=== PATIENT | male | born 2000 | race Caucasian/White ===

== ENCOUNTER 2025-02-26 18:47 | Inpatient (IN) | payer OTHER, SELFPAY ==
[2025-02-26 11:14] VITALS: BP 155/87
[2025-02-26 12:11] LABS: Hematocrit 41.2 % (39.0-52.0); Hemoglobin 14.3 g/dL (13.0-18.0); Mean Corp Hgb Conc. 34.7 g/dL (33.0-37.0); Mean Corpuscular Volume 83.6 fL (80.0-94.0); Nucleated Red Blood Cells % 0 % (-); Platelet Count 223 10^3/uL (130-400); Red Cell Dist. Width 12.4 % (11.5-14.5)
[2025-02-26 12:17] VITALS: BMI 24.9
[2025-02-26 12:18] LABS: ALT (SGPT) 26 U/L (0-50); AST (SGOT) 21 U/L (17-59); Albumin 4.4 g/dl (3.5-5.0); Alkaline Phosphatase 58 U/L (38-126); Blood Urea Nitrogen 13 mg/dl (9-20); Calcium 9.2 mg/dl (8.4-10.2); Carbon Dioxide 25 mmol/L (22-30); Chloride 103 mmol/L (98-107); Estimated Creatinine Clearance > 125 ml/min; Glucose 90 mg/dl (70-99); Lipase 66 U/L (23-300); Potassium 4.0 mmol/L (3.5-5.1); Sodium 138 mmol/L (135-145); Total Protein 7.1 g/dl (6.3-8.2); eGFR > 60.00
[2025-02-26] MEDS: TORADOL 15 MG IV (12:21)
[2025-02-26] MEDS: NSS 1000 IV (12:21)
--- NOTE | 2025-02-26 12:22 | ED.GENMED ---
History of Present Illness
<Gabbi Addison PA-C - Last Filed: 02/26/25 22:03>
General
Chief Complaint: Abdominal Pain
Source: patient
Exam Limitations: none
Time Seen by Provider: 02/26/25 12:02
Nursing documentation reviewed up to this point in time: agreed with
History of Present Illness
History of Present Illness:
Patient is a 24-year-old male who presents to the emergency department with abdominal pain for the past 2 days. He states he woke up with upper abdominal pain on Sunday morning which he initially thought was gas pain or muscular pain. However�he
states that over the past 2 days symptoms have persisted if not worsened in intensity and he now notices pain throughout his lower abdomen as well. He states pain is sometimes sharp and sometimes crampy. Pain is intensified with certain movements
and he found himself walking over in a 'hunched over position' this morning while attempting to work.
He states he does perform a lot of heavy lifting at work, especially this past Sunday prior to onset of symptoms and thought he may have pulled a muscle or developed a hernia.
Patient denies any fever or chills. He denies any dysuria or hematuria. No nausea, vomiting, or anorexia. No significant changes in bowel movements.
Patient did visit an urgent care this morning who was then referred to the emergency department for further and likely abdominal imaging.
Review of Systems
<Gabbi Addison PA-C - Last Filed: 02/26/25 22:03>
Review of Systems
Allergies reviewed?: Yes
All Other Systems: ROS reviewed and negative except as documented in HPI and ROS
Phy Exam
<Gabbi Addison PA-C - Last Filed: 02/26/25 22:03>
Physical Exam
Physical Exam:
Vitals: Hypertensive, otherwise vital signs stable.
General: Patient is well appearing, no acute distress. Nontoxic appearing
Skin: Warm and dry, no rashes or lesions
Head: Normocephalic, atraumatic
Eyes: Sclera nonicteric.
Throat: Protecting airway
Neck: Normal ROM, no cervical spine tenderness, no meningismus
Cardiac: Regular rate and rhythm, no murmurs.
Pulm: Normal respiratory effort. Lungs clear bilaterally
Abdomen: Abdomen soft. Somewhat diffuse tenderness throughout abdomen without rebound tenderness or guarding. No CVA tenderness.
Extremities: No evidence of cyanosis or edema
Neuro: AAOx3. Grossly intact.
Psychiatric: Normal affect.
Course
<Gabbi Addison PA-C - Last Filed: 02/26/25 22:03>
Orders/Labs/Results
Orders:
Orders
02/26/25 11:59
Complete Blood Count/With Diff Urgent
Comprehensive Metabolic Panel Urgent
Lipase Urgent
02/26/25 12:12
0.9% Sodium Chloride 1000 ml [Nss] 1,000 ml IV BOLUS
Ketorolac [Toradol] 15 mg IV NOW STA
02/26/25 12:13
CT Abd/pelvis W Iv Cont Urgent
Comment:
Reason For Exam: Lower abdominal pain
02/26/25 12:25
Urinalysis Reflex To Culture Urgent
Date Specimen was Collected: 02/26/25
Time Specimen was Collected: 12:24
Urine Microscopic Reflex Cult Urgent
Urine Culture Urgent
NEHAL Source: U
Specimen Description:
Date Specimen was Collected: 02/26/25
Time Specimen was Collected: 12:24
02/26/25 Dinner
NPO
Allow oral meds: No
Allow clear liquids: No
NPO with Ice Chips: No
02/26/25 15:43
LevoFLOXacin 750 MG/150 ML [Levaquin] 750 mg in 150 ml IV NOW
MetroNIDAZOLE 500 MG/100 ML [Flagyl 500 mg] 100 ml IV NOW
02/26/25 15:44
Acetaminophen [Tylenol] 650 mg PO NOW STA
02/26/25 17:54
Admit/Transfer Patient As Directed
Co-Sign Provider:
Level of Care: Inpatient admission
Assign to:: Medical/Surgical
Physician / Group: hospitalist
Diagnosis: intraabdominal abcess
Reason for Hospitalization: INTRAABDOMINAL ABSCESS
Expected length of stay greater than two midnights?: Yes
ELOS- Estimated Length of Stay in days: 2
I certify the patient meets the requirements for IP care: Yes
Reason for Overnight Stay: Require IV med- infection
PRN Pain Medication Management As Directed
May give lesser potent ordered pain med per pt: Yes
preference::
Protocol:: Medication orders for pain may be administered in a
manner that supports deferring to patient preference
when the pt is:
- Requesting an ordered lesser potent pain medication.
Least to most potent pain medications are defined
as: acetaminophen < NSAID < tramadol < opioids
(morphine, oxycodone, hydromorphone).
- Requesting a lesser dose of the same medication IF
ORDERED.
- Requesting a less intrusive route of administration
if both routes are prescribed by the provider (PO <
IV).
02/26/25 17:56
Code Status As Directed
Resuscitation Status: Full Code
02/26/25 20:23
Bisacodyl [Dulcolax] 10 mg RECTAL [id number] PRN
Dextrose 5%/Lactringers 1000ML [D5lr] 1,000 ml IV 120 mls/hr
Enoxaparin Sodium [Lovenox] 40 mg SC QPM
Pantoprazole 80 mg/100 ml Nss [Protonix] 80 mg in 100 ml IV Q10H
02/26/25 20:23
GASTROINTESTINAL CONSULT Routine
Consulting Provider: Ivone Britt
Was physician already notified: Yes
Reason for consult: Possible perf DUo ulcer
IRAD CONSULT Routine
Consulting Provider: Gigi Palencia
Was physician already notified: Yes
Procedure being ordered, including laterality if applicable: Abscess drainage -abdomen
Acknowledgement that appropriate orders are entered: Yes
SURGICAL CONSULT Urgent
Consulting Provider: Orlando Harrington
Was physician already notified: Yes
Reason for consult: INTRA ABDOMINAL ABSCESS
Wound/Abscess/Other Culture Routine
NEHAL Source: Abscess
Specimen Description:
Comment: INTRABDOMINAL ABSCESS
Activity As Directed
Activity Level: Ambulate
Vital Signs As Directed
Frequency: Per unit guidelines
DX Deep Vein Thrombosis Video Routine
02/27/25 00:00
MetroNIDAZOLE 500 MG/100 ML [Flagyl 500 mg] 100 ml IV Q8H
02/27/25 06:00
Basic Metabolic Panel IN AM
Complete Blood Count/No Diff IN AM
PTT IN AM
Prothrombin Time IN AM
02/27/25 18:00
LevoFLOXacin 750 MG/150 ML [Levaquin] 750 mg in 150 ml IV Q24H
Abnormal Lab Results
02/26/25 02/26/25
11:59 12:25
Absolute Monos (auto) 0.9 H 10^3/uL
(0.1-0.6)
Lymphocytes % 19.9 L %
(20.5-51.1)
Monocytes % 11.4 H %
(1.7-9.3)
Urine Ketones 3+ A
(Negative)
Urine Bacteria (Reflex) Moderate A
(Negative)
Urine Albumin (Reflex) 1+ A
(Neg - Trace)
02/26/25 11:59
02/26/25 11:59
Vital Signs
Initial and Last Documented VS:
Initial Vital Signs
Temp Pulse Resp BP Pulse Ox
98.8 F 84 16 155/87 100
02/26/25 11:14 02/26/25 11:14 02/26/25 11:14 02/26/25 11:14 02/26/25 11:14
Last Documented Vital Signs
Temp Pulse Resp BP Pulse Ox
98.3 F 85 20 134/85 98
02/26/25 20:28 02/26/25 20:28 02/26/25 20:28 02/26/25 20:28 02/26/25 20:52
<Del Christian MD - Last Filed: 02/26/25 15:46>
Orders/Labs/Results
Orders:
Orders
02/26/25 11:59
Complete Blood Count/With Diff Urgent
Comprehensive Metabolic Panel Urgent
Lipase Urgent
02/26/25 12:12
0.9% Sodium Chloride 1000 ml [Nss] 1,000 ml IV BOLUS
Ketorolac [Toradol] 15 mg IV NOW STA
02/26/25 12:13
CT Abd/pelvis W Iv Cont Urgent
Comment:
Reason For Exam: Lower abdominal pain
02/26/25 12:25
Urinalysis Reflex To Culture Urgent
Date Specimen was Collected: 02/26/25
Time Specimen was Collected: 12:24
Urine Microscopic Reflex Cult Urgent
Urine Culture Urgent
NEHAL Source: U
Specimen Description:
Date Specimen was Collected: 02/26/25
Time Specimen was Collected: 12:24
02/26/25 Dinner
NPO
Allow oral meds: No
Allow clear liquids: No
NPO with Ice Chips: No
02/26/25 15:43
LevoFLOXacin 750 MG/150 ML [Levaquin] 750 mg in 150 ml IV NOW
MetroNIDAZOLE 500 MG/100 ML [Flagyl 500 mg] 100 ml IV NOW
02/26/25 15:44
Acetaminophen [Tylenol] 650 mg PO NOW STA
02/26/25 17:54
Admit/Transfer Patient As Directed
Co-Sign Provider:
Level of Care: Inpatient admission
Assign to:: Medical/Surgical
Physician / Group: hospitalist
Diagnosis: intraabdominal abcess
Reason for Hospitalization: INTRAABDOMINAL ABSCESS
Expected length of stay greater than two midnights?: Yes
ELOS- Estimated Length of Stay in days: 2
I certify the patient meets the requirements for IP care: Yes
Reason for Overnight Stay: Require IV med- infection
PRN Pain Medication Management As Directed
May give lesser potent ordered pain med per pt: Yes
preference::
Protocol:: Medication orders for pain may be administered in a
manner that supports deferring to patient preference
when the pt is:
- Requesting an ordered lesser potent pain medication.
Least to most potent pain medications are defined
as: acetaminophen < NSAID < tramadol < opioids
(morphine, oxycodone, hydromorphone).
- Requesting a lesser dose of the same medication IF
ORDERED.
- Requesting a less intrusive route of administration
if both routes are prescribed by the provider (PO <
IV).
02/26/25 17:56
Code Status As Directed
Resuscitation Status: Full Code
02/26/25 20:23
Bisacodyl [Dulcolax] 10 mg RECTAL [id number] PRN
Dextrose 5%/Lactringers 1000ML [D5lr] 1,000 ml IV 120 mls/hr
Enoxaparin Sodium [Lovenox] 40 mg SC QPM
Pantoprazole 80 mg/100 ml Nss [Protonix] 80 mg in 100 ml IV Q10H
02/26/25 20:23
GASTROINTESTINAL CONSULT Routine
Consulting Provider: Ivone Britt
Was physician already notified: Yes
Reason for consult: Possible perf DUo ulcer
IRAD CONSULT Routine
Consulting Provider: Gigi Palencia
Was physician already notified: Yes
Procedure being ordered, including laterality if applicable: Abscess drainage -abdomen
Acknowledgement that appropriate orders are entered: Yes
SURGICAL CONSULT Urgent
Consulting Provider: Orlando Harrington
Was physician already notified: Yes
Reason for consult: INTRA ABDOMINAL ABSCESS
Wound/Abscess/Other Culture Routine
NEHAL Source: Abscess
Specimen Description:
Comment: INTRABDOMINAL ABSCESS
Activity As Directed
Activity Level: Ambulate
Vital Signs As Directed
Frequency: Per unit guidelines
DX Deep Vein Thrombosis Video Routine
02/27/25 00:00
MetroNIDAZOLE 500 MG/100 ML [Flagyl 500 mg] 100 ml IV Q8H
02/27/25 06:00
Basic Metabolic Panel IN AM
Complete Blood Count/No Diff IN AM
PTT IN AM
Prothrombin Time IN AM
02/27/25 18:00
LevoFLOXacin 750 MG/150 ML [Levaquin] 750 mg in 150 ml IV Q24H
Abnormal Lab Results
02/26/25 02/26/25
11:59 12:25
Absolute Monos (auto) 0.9 H 10^3/uL
(0.1-0.6)
Lymphocytes % 19.9 L %
(20.5-51.1)
Monocytes % 11.4 H %
(1.7-9.3)
Urine Ketones 3+ A
(Negative)
Urine Bacteria (Reflex) Moderate A
(Negative)
Urine Albumin (Reflex) 1+ A
(Neg - Trace)
02/26/25 11:59
02/26/25 11:59
Vital Signs
Initial and Last Documented VS:
Initial Vital Signs
Temp Pulse Resp BP Pulse Ox
98.8 F 84 16 155/87 100
02/26/25 11:14 02/26/25 11:14 02/26/25 11:14 02/26/25 11:14 02/26/25 11:14
Last Documented Vital Signs
Temp Pulse Resp BP Pulse Ox
98.3 F 85 20 134/85 98
02/26/25 20:28 02/26/25 20:28 02/26/25 20:28 02/26/25 20:28 02/26/25 20:52
<Gabbi Addison PA-C - Last Filed: 02/26/25 22:03>
MDM/Problems Addressed
Differential Diagnosis Includes:
Not limited to: GERD, gastritis, constipation, appendicitis, acute cholecystitis, mesenteric adenitis, muscular strain, etc.
MDM/Problems Addressed:
24-year-old female presenting with 2 days of somewhat generalized abdominal pain without associated fever, anorexia, vomiting. No associated urinary symptoms or changes in bowel habits. Mildly hypertensive on arrival with otherwise stable vital
signs. He is afebrile. On exam�patient well and nontoxic appearing. Abdomen is soft with somewhat diffuse tenderness, most notable on right side. No focal tenderness at McBurney's point. Differential as above. Possibilities include GERD,
gastritis, constipation. Possible acute intra-abdominal infection such as appendicitis, acute cholecystitis, less likely diverticulitis. ED plan: Labs, UA, CT scan abdomen/pelvis. Will give IV fluids and treat pain. Will closely monitor and
reassess after above.
Update: Labs reviewed. No clinically significant abnormalities on CBC or chemistry. Urine shows no red blood cells or evidence of suspected infection. CT scan reveals 4.5 X3.8X 8.6 cm multiloculated fluid collection in right mid abdomen
suspicious for abscess. Unclear etiology of abscess however located near duodenum with concern for possible ulcer/perforation
Discussed findings with patient. This will require admission to the hospital for IV antibiotics and possible IR drainage. Levaquin/Flagyl given in ED given PCN allergy. Patient excepted to hospitalist service in stable condition. Patient seen
with attending physician.
Chronic conditions affecting care:
N/A
Acute Exacerbation and/or Progression of Chronic Illness:
N/A
<Gabbi Addison PA-C - Last Filed: 02/26/25 22:03>
*Radiology
Radiology exam reviewed: radiology read reviewed
*Pulse Oximetry
SaO2: 100
Oxygen Mode of Delivery: Room air
Patient hypoxic: no
*EKG
Interpreted by ED Provider?: NA
*Peoplesoft Programmer Interpretation
Rate: Peoplesoft Programmer- N/A
*Critical Care Note
Total Time (30-74mins, 75-104mins- exclusive of procedures): Not Applicable
<Gabbi Addison PA-C - Last Filed: 02/26/25 22:03>
Patient Management
Discussion with other providers: Hospitalist
Escalation/DeEscalation of care consider admission/obs:
Admit for IV antibiotics, further management and possible IR drainage
ED Attending Note
<Gabbi Addison PA-C - Last Filed: 02/26/25 22:03>
-
Portions of this chart may have been created with voice recognition software.� Occasional wrong word or��sound alike� substitutions may have occurred due to the inherent limitations of voice recognition software.
<Del Christian MD - Last Filed: 02/26/25 15:46>
ED Attending Note
Patient seen and examined by attending physician: Yes
I performed the substantive portion of visit, reviewed & personally made and approve the management plan that is documented in note by myself or IMMANUEL.: Yes
ED Attending Note:
Healthy 24-year-old male 2 days of abdominal pain. Mostly mid abdomen. No nausea or vomiting no diarrhea no fever. No trauma. No back pain.
On exam patient is alert oriented no distress. Warm and dry. Perfusing well. Lungs clear and equal. Heart regular rate and rhythm no murmur. Abdomen has bowel sounds. No distention. Soft. Nonlocalizing tenderness diffusely across the lower
abdomen periumbilical and mild epigastric. No rebound or guarding no mass or hernia.
Medical Decision Making vague abdominal discomfort. Large differential including appendicitis enteritis. Doubt diverticulitis. Doubt bowel obstruction.
Labs are stable. CT scan shows a 4 cm multiloculated probable abscess in the mid abdomen. Next to the duodenum. Could be consistent with a ruptured duodenal ulcer. However this does not totally fit his history. Etiology is uncertain but at this
time clearly warrants admission antibiotics and further evaluation and referral
Discharge Plan
Departure
Patient Disposition: Admit
Date of Disposition: 02/26/25
Time of Disposition: 15:40
Presentation/result/management discussed w/ accepting MD/DO: Hospitalist
Discharge Problem:
Intra-abdominal abscess
Interventions
Interventions:
*Risk Screen - Suicide Last Done: 02/26/25 21:41
*General Assessment Last Done: 02/26/25 12:18
*Neglect/Abuse Screening Last Done: 02/26/25 11:16
*ED- Fall Risk Assessment Last Done: 02/26/25 12:18
*ED COVID-19 Vaccine History Last Done: 02/26/25 21:36
*Nursing Disposition Last Done: 02/26/25 20:29
BP-Jicgck-Hjgnpyfidx Assessment Last Done: 02/26/25 12:00
Discharge Date and Time
Discharge Date/Time: 02/26/25 20:29
[2025-02-26 12:48] LABS: Urine Character Clear (Clear)
[2025-02-26 13:22] LABS: Urine Squamous Cell 0-2 /LPF (Few)
[2025-02-26 13:23] LABS: Urine Red Blood Cell 0-2 /HPF (0-2); Urine White Cell 0-2 /HPF (0-5)
[2025-02-26] MEDS: TYLENOL 650 MG PO (16:07)
[2025-02-26] MEDS: FLAGYL 500 MG 100 IV ×2 (16:08→23:05)
--- NOTE | 2025-02-26 16:30 | W.PN.UPDATE ---
Update Note
Progress Note Update
Seen and examined the patient with the resident. Agree with plan.'s please see changes in my documentation
24-year-old man presented to the ER with abdominal pain for the past 2 days. He performs a lot of heavy lifting at work and initially thought on Sunday that this was the reason. No fevers or chills. Denies any melena, hematemesis, diarrhea, NSAID
use, alcohol use. Brother with history of duplication of duodenum as a baby
CT scan of the abdomen pelvis-4.5-3.8 and 8.69 cm with a multiloculated fluid collection within the right mid abdomen suspicious for abscess. Source of abscess is indeterminate however superiorly this is inseparable from the duodenum and could
represent sequelae of duodenal ulcer or perforation. Mildly enlarged spleen. Partially imaged intramedullary norman within the left femur
Patient denies any pain here
Awake alert pleasant nontoxic-appearing
Cardiovascular system S1-S2 appreciated
Chest clear to auscultation S1 abdomen mild diffuse tenderness no guarding or rigidity no peritoneal signs
No pedal edema
Skin normal
# Multiloculated fluid collection of the abdomen
Most likely duodenal ulcer perforation
Lipase normal
No history of alcohol, NSAID use
Keep n.p.o.
Check blood cultures
Start antibiotics-allergy with rash to amoxicillin therefore use Levaquin and Flagyl
Surgery evaluation-discussed recommended upper GI series
Surgery recommended GI consultation for endoscopic closure
IR consultation for drainage-check abscess culture
ID evaluation
PPI drip
Do not use any NSAIDs for pain only use morphine for now
# DVT prophylaxis-Lovenox
# Full code
Discussed with surgeon
Discussed with mother on the phone and father at bedside
[2025-02-26] MEDS: LEVAQUIN 150 IV (17:17)
--- NOTE | 2025-02-26 18:25 | HPS.HSE ---
Family Physician
-
Family Physician: INTERVIEWE UNKNOWN - PT NOT
Chief Complaint
-
upper abdominal pain
History of Present Illness
24-year-old male presented with abdominal pain started on Sunday, which was a sudden in onset with constant, pain was sharp, sometimes crampy, and diffuse around the upper abdomen, aggravated while on walking,sneezing, coughing and relieved by
lying down. On Sunday he had steak and pain started afterwards which was mild at that time. Did not take any medications for the pain. Not associated with fever, chills, dysuria, hematuria, nausea, vomiting. His last bowel movement is today
morning and he passed flatus. He did not travel outside, never drank water from the stream. He had similar episodes on and off with greasy foods and relieved by bowel rest.
Patient got admitted on 2016 at ER for lower abdominal pain at that time there was no imaging studies done.
Medical History
Past Medical History
Past Medical History: Reports None
Past Surgical History: Reports Other
Additional Past Surgical History:
Left knee surgery
Social History
Tobacco: Non-smoker
Alcohol: None
Drug: None
Personal: Single
Employment: Employed
Family History
Family History: Other (His brother had double duodenum when he was born)
Allergies / Home Medications
Allergies
Allergy/AdvReac Type Severity Reaction Status Date / Time
amoxicillin Allergy Rash Verified 01/19/17 12:26
Home Medications
No Meds [No Current Medications] 02/26/25
Allergies reflects when Allergies were last updated in [facility].
Home Medications with original date entered in [facility]
Allergy/Medication List:
Allergic to penicillin when he was kid.
Review of Systems
-
History Source: Patient
A 12 point ROS was completed and negative except as noted: Yes
Constitutional: Reports See HPI
Physical Exam
Vital Signs
Vital Signs
Temp Pulse Resp BP Pulse Ox
98.8 F 84 16 155/87 100
02/26/25 11:14 02/26/25 11:14 02/26/25 11:14 02/26/25 11:14 02/26/25 12:27
Physical Exam
General: Well Developed and Pain
HEENT: Anicteric and Moist mucous membranes
Respiratory: Clear
Cardiac: S1/S2 and Regular Rhythm
GI: Soft, Non Distended, Normal Bowel Sounds (Hyperechoic bowel sounds.) and Tender (diffuse mild tenderness)
Rectal: Other
Genito-urinary: No costovertebral tender
Musculoskeletal: No Clubbing and No Cyanosis
Skin: Warm
Neuro: AO x 3
Hematologic/Lymphatic: No Lymphadenopathy
Psych: Calm
Laboratory Results
-
02/26/25 11:59
02/26/25 11:59
Laboratory Results
Total Bilirubin 1.1 mg/dl (0.2-1.3) 02/26/25 11:59
AST 21 U/L (17-59) 02/26/25 11:59
ALT 26 U/L (0-50) 02/26/25 11:59
Alkaline Phosphatase 58 U/L (38-126) 02/26/25 11:59
Lipase 66 U/L (23-300) 02/26/25 11:59
Impression/Plan
-
IMPRESSION AND PLAN:
24-year-old male presented with with abdominal pain
# Abdominal pain:
-BP= 155/87; Temp= 98.8, O2 100
-WBC= 8 (n), hemoglobin 14.3(n)
Abdomen/pelvic CT on 02/26 with IV contrast:
1 4.5 x 3.8 x 8.6 cm multiloculated fluid collection within the right mid abdomen suspicious for abscess. Source of abscess is indeterminate, however superiorly the collection abuts and is inseparable from the duodenum and could represent sequela
of duodenal ulcer or perforation.
2. Mildly enlarged spleen.
-NPO.
- Continue IV fluids D5 RL
-IV pantoprazole 40 mg started as prophylaxis for ulcer.
-IV metronidazole, IV levofloxacin continued as prophylaxis for the infection.
-Monitor for QT interval as an side effect of levofloxacin.
-Surgery consulted for multiloculated fluid collection on the right mid abdomen. Recommended for upper GI endoscopy.
-Consult GI for midabdomen abscess, suspicious for duodenal ulcer or perforation.
# Urinalysis: Urine bacteria moderate +, urine albumin +
Urine culture results pending.
DVT prophylaxis: Lovenox 40 mg
Code: Full
Disposition: Home
--- NOTE | 2025-02-26 18:55 | CON.GS ---
Consultation
-
Date/Time Consultation Requested: 02/26/2025 5 PM
Date/Time Consultation Performed: 02/26/2025 6 PM
Requesting Provider: Dr. Scruggs
Performing Provider: Dr. Harrington
Reason for Consultation: Retroperitoneal abscess
Medical History
-
Chief Complaint: Abdominal pain
History of Present Illness:
This is a very pleasant 24-year-old man who presents to the ER with abdominal pain that began Sunday in the setting of GI discomfort that began Sunday into Sunday. He thought that this was 'gas pain'
Past Medical History
Past Medical History: None
Past Surgical History: None
Social History
Tobacco: Non-Smoker
Alcohol: None
Drug: None
Personal: Single
Employment: Employed
Family History
Family History: Other (Brother reportedly has a history of a duodenal duplication cyst)
Allergies / Home Medications
Allergy/AdvReac Type Severity Reaction Status Date / Time
amoxicillin Allergy Rash Verified 01/19/17 12:26
�Medication �Instructions �Recorded �Confirmed �Type
No Meds [No Current Medications] 02/26/25 02/26/25 History
Review of Systems
-
All other systems: Negative unless noted
A 10 point review of systems was completed, and was negative except as per HPI.
Physical Exam
Vital Signs
Temp Pulse Resp BP Pulse Ox
98.8 F 84 16 155/87 100
02/26/25 11:14 02/26/25 11:14 02/26/25 11:14 02/26/25 11:14 02/26/25 12:27
02/25/25 02/26/25 02/27/25
06:59 06:59 06:59
Actual Weight 90.2 kg
Body Mass Index (BMI) 24.9
Lab Results
02/26/25 11:59
02/26/25 11:59
WBC 8.0 10^3/uL (4.8-10.8) 02/26/25 11:59
Hgb 14.3 g/dL (13.0-18.0) 02/26/25 11:59
Hct 41.2 % (39.0-52.0) 02/26/25 11:59
Plt Count 223 10^3/uL (130-400) 02/26/25 11:59
Abs Immat Gran (auto) 0.0 10^3/uL (0-0.05) 02/26/25 11:59
Neutrophils % 65.2 % (42.2-75.2) 02/26/25 11:59
Physical Exam
General: Well Developed and Well Nourished
HEENT: Normocephalic
Respiratory: Clear and Non Labored Respirations
GI: Soft, Non Distended and Tender (Mildly)
Neuro: AO x 3
Data Reviewed
-
CT Scan: Image Personally Visualized and interpreted, Report Reviewed by me, Discussed with Patient and Discussed with Family
Labs: Labs Reviewed by me
Total Time Spent with Patient (in minutes): 35
Assessment / Plan
-
This is a 24-year-old male who presents with 2-day history of worsening right sided abdominal pain in the setting of 4 to 5 days of GI discomfort without nausea vomiting or diarrhea found to have a large retroperitoneal collection that appears to be
emanating from the duodenum on CT abdomen pelvis without oral contrast which could represent a duodenal perforation versus an infection of a duplication cyst if he does indeed have 1 like his brother versus other retroperitoneal organ.
Would get an upper GI with small bowel follow-through with Omnipaque to help confirm source.
N.p.o., IV fluids, IV antibiotics. We did briefly discuss placing an NG tube to decrease the acid through the duodenum but we elected to hold off for now.
IR consult for drainage of this retroperitoneal collection, it appears that there were good windows both anteriorly and through the side.
Pending the findings of the upper GI, recommend GI consult for possible endoscopic closure of the leak.
If the patient were to decompensate, I explained to both patient and family that we would likely need to take him to the operating room for definitive management however as the patient is thankfully stable we will proceed with nonoperative
management for now.
I spent 75 minutes in total for the care of this patient today including direct patient care and counseling, reviewing labs, imaging, coordination of care, as well as documentation.
[2025-02-26 19:43] VITALS: BP 132/89
[2025-02-26 20:28] VITALS: BP 134/85; BMI 25.7
[2025-02-26] MEDS: LOVENOX SC (20:51)
[2025-02-26] MEDS: D5LR 1000 IV (21:11)
[2025-02-26] MEDS: PROTONIX 100 IV (21:19)
[2025-02-26 23:11] VITALS: BP 119/79
[2025-02-27] VITALS (11 sets, daily range): BP systolic 65–147; BP diastolic 76–99
--- NOTE | 2025-02-27 01:19 | PTCARENOTE ---
Pt arrived to unit at 2020 from ED by wheelchair. Pt ambulated into bed without assist-gait steady, erect posture. Pt AAOx3, c/o mild abd pain-denied analgesia. NPO tonight, IVF & protonix gtt started. Pt states no further needs at this time. Call
joya within reach, bed in lowest position and locked.
[2025-02-27 07:21] LABS: INR 1.15; PT 15.2 Sec (11.4-14.6)
[2025-02-27 07:22] LABS: APTT 37.6 Sec (23.4-35.0)
[2025-02-27 07:36] LABS: Blood Urea Nitrogen 13 mg/dl (9-20); Calcium 9.3 mg/dl (8.4-10.2); Carbon Dioxide 27 mmol/L (22-30); Chloride 106 mmol/L (98-107); Estimated Creatinine Clearance > 125 ml/min; Glucose 93 mg/dl (70-99); Potassium 4.0 mmol/L (3.5-5.1); Sodium 140 mmol/L (135-145); eGFR > 60.00
[2025-02-27] MEDS: PROTONIX 100 IV (07:37)
[2025-02-27] MEDS: D5LR 1000 IV ×2 (07:37→22:34)
[2025-02-27 07:40] LABS: Hematocrit 39.7 % (39.0-52.0); Hemoglobin 13.4 g/dL (13.0-18.0); Mean Corp Hgb Conc. 33.8 g/dL (33.0-37.0); Mean Corpuscular Volume 86.1 fL (80.0-94.0); Platelet Count 219 10^3/uL (130-400); Red Cell Dist. Width 12.3 % (11.5-14.5)
[2025-02-27 08:26] LABS: C-Reactive Protein 141.80 mg/L (0.0-10.00)
[2025-02-27] MEDS: FLAGYL 500 MG 100 IV ×3 (08:32→23:12)
--- NOTE | 2025-02-27 08:42 | CON.ID ---
Addendum entered and electronically signed by Jeanne Chong MD 02/27/25 11:47:
I personally performed a history and physical exam of the patient and discussed management with the resident. I reviewed the resident's note and agree with the documented findings and plan of care HPI/CC with the following additions/corrections:
HPI:
Mr Esteves is a 24 year old male without past diagnoses who presented here 02/26 for abrupt onset of abdominal pain on ~02/24, constant, sharp, diffuse, aggravated by movement and relieved by rest. No fevers or chills. He reports a history of
crampy abdominal pain with fatty foods, relieved by bowel rest. Denies any melena, hematemesis, diarrhea, NSAID use, alcohol use
Allergies: reports rash with amoxicillin
Since arrival here he has been found to have a multiloculated abscess without clear cause though perforated duodenal ulcer is suspected.
Labs/Imaging: reviewed
CRP 142
CT scan of the abdomen pelvis-4.5-3.8 and 8.69 cm with a multiloculated fluid collection within the right mid abdomen suspicious for abscess. Source of abscess is indeterminate however superiorly this is inseparable from the duodenum and could
represent sequelae of duodenal ulcer or perforation. Mildly enlarged spleen
EKG - QTc 430
A&P:
Retroperitoneal fluid collection
Allergies: reports rash with amoxicillin
- will follow up upper GI and endoscopy if pursued
- agree with drainage for cultures and source control; also for possible scoping to assess for possible closure
- agree with ceftriaxone/metronidazole - likely for eventual deescalation to orals
AW
Original Note:
Consultation
-
Date/Time Consultation Requested: 02/26/25 20:23
Date/Time Consultation Performed: 02/27/25 09:00
Requesting Provider: Dr. Scruggs
Performing Provider: Maximino Rizvi MD; Jeanne Chong MD
Reason for Consultation: intra abdominal abscess
Chief Complaint / Past History
Chief Complaint
Abdominal pain
History of Present Illness
24 with no medical hx, not on any chronic medications presented in the emergency department on 02/26/2025 with complaint of abdominal pain that started 2 days ago. Denies any nausea, vomiting, fevers or chills. Denies any recent use of NSAIDs,
alcohol use. Denies any recent sickness or sick contacts. He performs normal a lot of heavy lifting at work and thought that he had a muscle pain initially however when the pain progressively worsen he decided to come to the emergency department
In the emergency department CT scan of the abdomen/pelvis was performed which showed, 4.5-3.8 and 8.69 cm with a multiloculated fluid collection within the right mid abdomen suspicious for abscess. Source of abscess is indeterminate however
superiorly this is inseparable from the duodenum and could represent sequelae of duodenal ulcer or perforation. Mildly enlarged spleen. Partially imaged intramedullary norman within the left femur
Past History
Past Medical History: None
Past Surgical History: Orthopedic
Allergy History:
amoxicillin Allergy (Verified 01/19/17 12:26)
Rash
Medications Reviewed: Yes
Current Antibiotics:
Levofloxacin and Flagyl
Social History
Tobacco: Non-Smoker
Alcohol: None
Drug: None
Living: With Family
Employment: Employed
Family History
Family History: Other (Brother has duplication of duodenum)
Review of Systems
Review of Systems
General: Negative Fever
Cardiovascular: Negative Chest Pain
Respiratory: Negative Cough
Gasteroenterology: Other (Right sided abd pain); Negative Weight Loss, Nausea, Vomiting or Diarrhea
Genital / Urological: Negative Dysuria
Musculoskeletal: Negative Joint Pain
Skin / Hair / Nails: Negative Rash
Neurological: Negative Headache
Vital Signs
Temp Pulse Resp BP Pulse Ox
98.6 F 62 20 121/76 98
02/27/25 07:00 02/27/25 07:00 02/27/25 07:00 02/27/25 07:00 02/27/25 07:00
Physical Exam
Physical Exam
Constitutional: Well Developed and Comfortable
Cardiovascular: Regular Rate and S1/S2
Pulmonary: Clear, Symmetric and Non Labored
Gastrointestinal: Soft, Tender (R Upper and lower Q,) and Non Distended
Extremities: Negative Edema
Skin: Warm
Neurological: Awake, Alert and Oriented
Psychological: Calm
Lab / Diagnostic Study Results
02/27/25 06:04
02/27/25 06:04
Abs Immat Gran (auto) 0.0 10^3/uL (0-0.05) 02/26/25 11:59
Absolute Neuts (auto) 5.2 10^3/uL (1.4-6.5) 02/26/25 11:59
Absolute Lymphs (auto) 1.6 10^3/uL (1.2-3.4) 02/26/25 11:59
Absolute Monos (auto) 0.9 10^3/uL (0.1-0.6) H 02/26/25 11:59
Absolute Basos (auto) 0.1 10^3/uL (0-0.2) 02/26/25 11:59
Immature Gran % 0.2 % (0-0.5) 02/26/25 11:59
Neutrophils % 65.2 % (42.2-75.2) 02/26/25 11:59
Lymphocytes % 19.9 % (20.5-51.1) L 02/26/25 11:59
Monocytes % 11.4 % (1.7-9.3) H 02/26/25 11:59
Eosinophils % 2.7 % (0-6) 02/26/25 11:59
Basophils % 0.6 % (0-2) 02/26/25 11:59
PT 15.2 Sec (11.4-14.6) H 02/27/25 06:04
INR 1.15 02/27/25 06:04
C-Reactive Protein 141.80 mg/L (0.0-10.00) H 02/27/25 06:04
Ur Squamous Epith Cells 0-2 /LPF (Few) 02/26/25 12:25
Microbiology Results
Micro:
02/26/25 20:03 Blood Culture - Pending
Blood/Venous
02/26/25 20:03 Blood Culture - Pending
Blood/Venous
02/26/25 12:25 Urine Culture - Pending
Urine
CT Abd/pelvis W Iv Cont 02/26/25
1. 4.5 x 3.8 x 8.6 cm multiloculated fluid collection within the right mid abdomen suspicious for abscess. Source of abscess is indeterminate, however superiorly the collection abuts and is inseparable from the duodenum and could represent sequela
of duodenal ulcer or perforation.
2. Mildly enlarged spleen.
Assessment / Plan
# Multiloculated fluid collection of the abdomen
- Pending upper GI with small bowel follow-through with Omnipaque to help confirm source.
- NPO, IRAD was consulted for drainage
- currently on levofloxacin and Flagyl; since he is hemodynamically stable we will switch to ceftriaxone 2g Q24 and maintain Flagyl at q8h for now.
- BCx and UCx pending
- Brother has Duplicate duodenum
- Patient and family understands that if he decompensate he will require urgent OR.
His father, Rob was present during my encounter with the patient.
--- NOTE | 2025-02-27 09:09 | W.PN.UPDATE ---
Update Note
Progress Note Update
I personally performed a history and physical exam of the patient and discussed management with the resident. I reviewed the resident's note and agree with the documented findings and plan of care HPI/CC with the following additions/corrections:
HPI:
Mr Esteves is a 24 year old male without past diagnoses who presented here 02/26 for abrupt onset of abdominal pain on ~02/24, constant, sharp, diffuse, aggravated by movement and relieved by rest. No fevers or chills. He reports a history of
crampy abdominal pain with fatty foods, relieved by bowel rest. Denies any melena, hematemesis, diarrhea, NSAID use, alcohol use
Allergies: reports rash with amoxicillin
Since arrival here he has been found to have a multiloculated abscess without clear cause though perforated duodenal ulcer is suspected.
Labs/Imaging: reviewed
CRP 142
[address] scan of the abdomen pelvis-4.5-3.8 and 8.69 cm with a multiloculated fluid collection within the right mid abdomen suspicious for abscess. Source of abscess is indeterminate however superiorly this is inseparable from the duodenum and could
represent sequelae of duodenal ulcer or perforation. Mildly enlarged spleen
EKG - QTc 430
A&P:
Retroperitoneal fluid collection
Allergies: reports rash with amoxicillin
- will follow up upper GI and endoscopy if pursued
- agree with drainage for cultures and source control; also for possible scoping to assess for possible closure
- agree with ceftriaxone/metronidazole - likely for eventual deescalation to orals
AW
--- NOTE | 2025-02-27 09:55 | CON.GI ---
Addendum entered and electronically signed by Ivone Britt MD 02/27/25 20:08:
I saw and examined the patient.
The Resident's note was reviewed and I agree with the note.
Comment: 24-year-old with no significant past medical history who presented with complaints of right upper quadrant abdominal pain starting Sunday, this was after having Some chicken tenders, even if he coughs, he would feel the pain. No previous
similar episodes. No nausea or vomiting. No heartburn or trouble swallowing. No constipation, diarrhea, blood in the stool or black stool. No fevers or chills. No history of chronic GI issues even when he was younger. No smoking, no alcohol or
NSAID use on a regular basis. On admission, CBC, CMP in normal limits, C-reactive protein was elevated at 141.8, lipase in normal range.No fevers or chills. CT scan of the abdomen and pelvis with IV contrast showed 4.5 x 3.8 x 8.6 cm
multiloculated fluid collection in the right mid abdomen suspicious for abscess of indeterminate source. This was adjacent to the duodenum. Mildly enlarged spleen noted. Given there was a concern of possible duodenal ulcers/perforation, upper GI
study with small bowel follow-through was performed which showed slightly prominent proximal duodenal mucosal folds but no evidence of duodenal extravasation of contrast and rapid small bowel transit noted.
Family history of duplication cyst in brother and he was younger.
He subsequently had IR drainage of the collection in the right upper quadrant, about 40 mL of light bahena-colored nonbilious fluid was removed, possible has versus chylous ascites. Gram stain, cultures are pending, blood culture pending as well.
Triglycerides and amylase levels added as well.
- Await cultures from the 8 cm cyst/collection in the right upper quadrant, unclear source at this time
On clear liquid diet, advance as tolerated
Monitor for any fevers, currently on ceftriaxone and metronidazole.
No plans for upper endoscopy at this time from a GI standpoint
On Protonix 40 mg daily, can discontinue at discharge if no reflux symptoms.
Will follow peripherally
-
Original Note:
Consultation
-
Date/Time Consultation Requested: 02/26/2025 20:00
Date/Time Consultation Performed: 02/27/2025 09:00
Requesting Provider: Martín Scruggs
Performing Provider: Ivone Britt
Reason for Consultation: Possible perforated duodenal Ulcer
Medical History
Chief Complaint / HPI
Chief Complaint: Abdominal pain
History of Present Illness:
Jose De Jesus is a 24-year-old male with no significant past medical history presented to the ED with complaints of abdominal pain.
He reports that on 02/22, while at a volunteer event, he developed sudden RUQ abdominal pain, 6/10 intensity, following ingestion of fatty foods (chicken tenders and bbq). The pain was not associated with any n/v/or bowel changes. The pain raza
about 45 minutes, then went away. He was fine the next day, but then the pain returned on 02/24, was 7/10 in intensity. He felt as if it might have been gas pain because it was associated with some crampy, discomfort radiating to other parts of the
abdomen and was relieved when lying back, and worse when moving. The pain remained until 02/26 when it increased to 8/10 and he became worried so he went to the Urgent Care who recommended going to the hospital. He denies any fevers, chills, nausea,
vomiting, bloody stools during this time. He was eating, drinking and having normal bowel movements during this time. He reports no EtOH use, no NSAIDs, no history of GERD, no abdominal surgeries, and no history of similar symptoms.
Of note, his brother has a history of duodenal cystic duplication, first noticed on pre- US, that then required surgical removal at 2 weeks of age.
On admission his cbc and chemistry were unremarkable. CT Abd and pelvis w/ IV contrast was done which showed 4.5 x 3.8 x 8.6 cm multiloculated fluid collection within the right mid abdomen suspicious for abscess. Source of abscess is indeterminate,
however superiorly the collection abuts and is inseparable from the duodenum and could represent sequela of duodenal ulcer or perforation.
GI was consulted for the above image findings.
Past Medical History
Past Medical History: Other (See HPI)
Past Surgical History: Other
Social History
Tobacco: Non-Smoker
Alcohol: None
Drug: None
Personal: Partner
Living: With Family
Employment: Employed
Family History
Family History: Reviewed & Not Pertinent
Allergies / Home Medications
Allergy/AdvReac Type Severity Reaction Status Date / Time
amoxicillin Allergy Rash Verified 01/19/17 12:26
�Medication �Instructions �Recorded
No Meds [No Current Medications] 02/26/25
Review of Systems
-
History Source: Patient
All other systems: A 12 pt ROS was Negative except as stated above in HPI
Vital Signs
Temp Pulse Resp BP Pulse Ox
98.6 F 62 20 121/76 98
02/27/25 07:00 02/27/25 07:00 02/27/25 07:00 02/27/25 07:00 02/27/25 07:00
Physical Exam
Exam
General: Well Developed, Well Nourished, No Apparent Distress and Comfortable
HEENT: Normocephalic, Anicteric, Moist Mucous Membranes and Atraumatic
Respiratory: Clear and Non Labored Respirations; Negative Wheezes, Rales or Rhonchi
Cardiac: S1/S2 and Regular Rhythm; Negative Murmur or Rub
Breast: Deferred by me
GI: Soft, Non Distended, Normal Bowel Sounds and Tender (mild diffuse tenderness with comparatively more tender region in the RUQ)
Rectal: Deferred by Provider
Genito-urinary: No Costovertebral Tender
Musculoskeletal: No Clubbing, No Cyanosis and No Edema
Skin: Warm and Dry
Neuro: AO x 3
Psych: Calm
Results
WBC 6.2 10^3/uL (4.8-10.8) 02/27/25 06:04
Hgb 13.4 g/dL (13.0-18.0) 02/27/25 06:04
Hct 39.7 % (39.0-52.0) 02/27/25 06:04
MCV 86.1 fL (80.0-94.0) 02/27/25 06:04
Plt Count 219 10^3/uL (130-400) 02/27/25 06:04
Absolute Neuts (auto) 5.2 10^3/uL (1.4-6.5) 02/26/25 11:59
PT 15.2 Sec (11.4-14.6) H 02/27/25 06:04
INR 1.15 02/27/25 06:04
APTT 37.6 Sec (23.4-35.0) H 02/27/25 06:04
Sodium 140 mmol/L (135-145) 02/27/25 06:04
Potassium 4.0 mmol/L (3.5-5.1) 02/27/25 06:04
Chloride 106 mmol/L (98-107) 02/27/25 06:04
Carbon Dioxide 27 mmol/L (22-30) 02/27/25 06:04
BUN 13 mg/dl (9-20) 02/27/25 06:04
Creatinine 1.0 mg/dL (0.7-1.3) 02/27/25 06:04
Calcium 9.3 mg/dl (8.4-10.2) 02/27/25 06:04
Total Bilirubin 1.1 mg/dl (0.2-1.3) 02/26/25 11:59
AST 21 U/L (17-59) 02/26/25 11:59
ALT 26 U/L (0-50) 02/26/25 11:59
Alkaline Phosphatase 58 U/L (38-126) 02/26/25 11:59
Lipase 66 U/L (23-300) 02/26/25 11:59
Diagnostic Image Results:
see HPI
Prior GI Procedures: None
EGD:
Colonoscopy:
Assessment / Plan
-
Jose De Jesus is a 24-year-old male with no significant past medical history presented to the ED with complaints of abdominal pain over the past [address] Abd/Pelvis:
1. 4.5 x 3.8 x 8.6 cm multiloculated fluid collection within the right mid abdomen suspicious for abscess with moderate adjacent fat stranding and inflammation. Source of abscess is indeterminate, however superiorly the collection abuts and is
inseparable from the duodenum and could represent sequela of duodenal ulcer or perforation. Reactive thickening of the ascending colon.
2. Mildly Enlarged spleen
#Multiloculated Abdominal Fluid Collection suspicious for abscess
#Abdominal Pain
- CT scan above showing large intraabdominal fluid collection suspicious for abscess
- Abutment of the collection to the duodenum and fhx of brother with duodenal duplication suspicious -- f/u small bowel follow through showing no extravasation from the duodenum
- no concern for duodenal ulcer at this time, ok to stop ppi ggt and switch to 40mg PO
- Gen Surg and IRAD already consulted
- given wnl SB follow through, IR to proceed with percutaneous drain placement
- fluid will be sent for culture, gram stain, further analysis
- Abx per ID/Primary team
- c/t monitor CBC, temperature curve
- Bcx drawn, results pending
From our standpoint, we will wait to see what the fluid analysis shows. Given no obvious connection between the duodenum and the fluid collection, there is no clear role at this time for inpatient EUS or EGD.
GI Will continue to follow
-
-
Thank you for consultation and allowing me to participate in the patient's care. Please call the central communications specialist GI physician during the after hours with any questions or concerns.
--- NOTE | 2025-02-27 10:21 | W.PN.GS2 ---
Addendum entered and electronically signed by Josh Wilkinson MD 02/27/25 13:18:
Patient seen and examined.
Pain improved. No nausea or emesis. No fevers. Passing flatus, no BM.
Gen: NAD
Abd: soft, tender RIGHT upper mid abdomen, ND, non-peritoneal
Labs and imaging were reviewed.
Patient is a 24 yo M p/w R upper abdominal pain
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 Less likely perforated ulcer for diverticulum. Recommend and plan for UGI to better assess source and possible connection to bowel. Pending these findings (no connection to bowel), would pursue IR
drainage. Continue with IV abx. Diet NPO for now, could start clears pending/after the above. All questions answered. Family updated.
-- UGI
-- Abx: Zosyn
-- NPO, IVF
-- Pain control: Tylenol and IV Dilaudid PRN
Original Note:
Today's Communication / Plan
-
For Upper GI series to determine next course of action
Assessment / Plan
-
24-year-old male with a past surgical history of left femur ORIF in 2017 and no significant medical history who presented on account of abdominal pain, waxes and wanes worsened with mobility. He denies associated constitutional symptoms, GI
symptoms, genitourinary his urinary symptoms. CT evaluation revealed a multiloculated fluid collection
# Intra-abdominal collection
CT Abd/pelvis W Iv Cont 02/26/2025
1. 4.5 x 3.8 x 8.6 cm multiloculated fluid collection within the right mid abdomen suspicious for abscess.
Source of abscess is indeterminate, however superiorly the collection abuts and is inseparable from the duodenum and could represent sequela of duodenal ulcer or perforation.
2. Mildly enlarged spleen.
- IV fluid, n.p.o.
-ABX
-For small bowel follow-through today
-For IRAD drain/ EGD following study dependent on result of study
-Continue to monitor patient status
DVT PPx Lovenox 40
Subjective Data
-
Date of Service: February 27, 2025
Patient seen
Pain has subsided, now cynthia
Objective Data
-
Intake and Output
02/26/25 02/27/25 02/28/25
06:59 06:59 06:59
Intake Total 792.7 / 792.7
Balance 792.7 / 792.7
Intake:
IV fluids (Total) 616 / 616
IV piggybacks 176.7 / 176.7
Other:
Number of approximated LARGE 1
amounts of urine
Vital Signs
Temp Pulse Resp BP Pulse Ox
98.6 F 62 20 121/76 98
02/27/25 07:00 02/27/25 07:00 02/27/25 07:00 02/27/25 07:00 02/27/25 07:00
Lab Results
02/27/25 06:04
02/27/25 06:04
Calcium 9.3 mg/dl (8.4-10.2) 02/27/25 06:04
Total Bilirubin 1.1 mg/dl (0.2-1.3) 02/26/25 11:59
AST 21 U/L (17-59) 02/26/25 11:59
ALT 26 U/L (0-50) 02/26/25 11:59
Alkaline Phosphatase 58 U/L (38-126) 02/26/25 11:59
Total Protein 7.1 g/dl (6.3-8.2) 02/26/25 11:59
Albumin 4.4 g/dl (3.5-5.0) 02/26/25 11:59
Physical Exam
-
Young man, not in any obvious distress, afebrile
CVS- S1 S2 Only
RS- Non labored breathing, vesicular breath sounds
ABD-full moves with respiration, mild generalized abdominal tenderness more in the right upper quadrant
No guarding
Normal bowel sounds
Patient has a salazar catheter: No
Patient has a central line: No
[2025-02-27] MEDS: STERILE WATER FOR INJECTION 20 ML IV (11:42)
[2025-02-27] MEDS: ROCEPHIN 2000 MG IV (11:42)
--- NOTE | 2025-02-27 13:09 | W.PN.HOSP.TC ---
Addendum entered and electronically signed by Martín Scruggs MD 02/27/25 13:52:
Seen and examined the patient with the resident. Agree with plan.'s please see changes in my documentation
24-year-old man presented to the ER with abdominal pain for the past 2 days. He performs a lot of heavy lifting at work and initially thought on Sunday that this was the reason. No fevers or chills. Denies any melena, hematemesis, diarrhea, NSAID
use, alcohol use. Brother with history of duplication of duodenum as a baby
CT scan of the abdomen pelvis-4.5-3.8 and 8.69 cm with a multiloculated fluid collection within the right mid abdomen suspicious for abscess. Source of abscess is indeterminate however superiorly this is inseparable from the duodenum and could
represent sequelae of duodenal ulcer or perforation. Mildly enlarged spleen. Partially imaged intramedullary norman within the left femur
Upper GI series-slightly prominent proximal duodenal mucosal folds. No findings to suggest duodenal leak or extravasation of contrast. Rapid small bowel transit.
Patient denies any pain
Awake alert pleasant nontoxic-appearing
Cardiovascular system S1-S2 appreciated
Chest clear to auscultation S1 abdomen mild tenderness no guarding or rigidity no peritoneal signs
No pedal edema
Skin normal
# Multiloculated fluid collection of the abdomen
Most likely duodenal ulcer perforation
No evidence of any connection to the duodenum currently up per upper GI series
Lipase normal
No history of alcohol, NSAID use
Keep n.p.o.
Check blood cultures
Start antibiotics-ceftriaxone and Flagyl
IR consultation for drainage-check abscess culture-if okay with GI and surgeon
ID evaluation appreciated
PPI
Do not use any NSAIDs for pain only use morphine for now-patient has not needed any
# DVT prophylaxis-Lovenox
# Full code
Discussed with surgeon
Discussed with mother and father at bedside
Discussed with GI
Discussed with IR
Drainage if OK with Surgeon and GI
Original Note:
Today's Communication/Plan
-
Continue with IV antibiotics
Continue with pain management
Continue to monitor
Assessment / Plan
Assessment / Plan
24-year-old male with past medical history of asthma, and family history of duodenal duplication cyst (brother) presented with abdominal pain described as constant, diffuse, pain scale of 8/10, slightly relieved when lying down. Denies nausea, and
vomiting.
#Abdominal Pain:
Abscess vs. Duodenal perforation vs. duplication cyst
Abdomen/pelvic CT on 02/26 with IV contrast:
1 4.5 x 3.8 x 8.6 cm multiloculated fluid collection within the right mid abdomen suspicious for abscess. Source of abscess is indeterminate, however superiorly the collection abuts and is inseparable from the duodenum and could represent sequela
of duodenal ulcer or perforation.
2. Mildly enlarged spleen.
Upper GI and Small Bowel X-Ray: No findings to suggest duodenal leak or extravasation of contrast
-NPO
-D5LR @120ml/hr
-IV pantoprazole 40 mg
-IV metronidazole 500 IV Day 2
-IV Ceftriaxone Sodium 2000mg IV Day 1
-Pain management: Morphine Sulfate 1mg IV q4PRN
-Drainage vs. conservative management
Surgery, GI, ID, IRAD following
DVT prophylaxis: Lovenox 40 mg
Code: Full
Anticipated Discharge: 24 - 48 hours
Subjective/Interval History
-
Date of Service: February 27, 2025
The patient rates his abdominal pain as 4/10, intermittent, lasting for a few seconds. Improved from yesterday. He is passing flatus, but no bowel movement since yesterday. Denies dysuria, shortness of breath, fever, and weakness.
Objective Data
-
Labs:
Laboratory Results
02/27/25
06:04
WBC 6.2
Hgb 13.4
Hct 39.7
Plt Count 219
PT 15.2 H
INR 1.15
APTT 37.6 H
Sodium 140
Potassium 4.0
Chloride 106
Carbon Dioxide 27
BUN 13
Creatinine 1.0
Glucose 93
Calcium 9.3
Vital Signs:
Vital Signs
Temp Pulse Resp BP Pulse Ox
98.6 F 62 20 121/76 98
02/27/25 07:00 02/27/25 07:00 02/27/25 07:00 02/27/25 07:00 02/27/25 10:31
I&O
02/26/25 02/27/25 02/28/25
06:59 06:59 06:59
Intake Total 792.7 / 792.7
Balance 792.7 / 792.7
Review of Systems
-
History Source: Patient
Constitutional: Denies Fever or Weakness
EENT: Reports No Symptoms Reported
Respiratory: Reports No Symptoms
Cardiac: Reports No Symptoms
Abdomen/GI: Reports Abdominal Pain; Denies Nausea, Vomiting, Diarrhea, Constipated or Bloody Stools
Genitourinary: Reports No Symptoms
Musculoskeletal: Reports No Symptoms
Skin: Reports No Symptoms
Neuro: Reports No Symptoms
Endocrine: Reports No Symptoms
Hematologic / Lymphatic: Reports No Symptoms
Physical Exam
-
General: Well Developed, Well Nourished, Comfortable and Conversant
HEENT: Normocephalic, Atraumatic and Moist Mucous Membranes
Respiratory: Clear to Auscultation
Cardiac: Regular Rhythm and S1/S2
GI: Soft, Nondistended, Normal Bowel Sounds and Tender
Musculoskeletal: No Clubbing, No Cyanosis and No Edema
Skin: Warm and Normal Turgor
Neuro: AO x 3, Nonfocal/Grossly Intact and Central Nerve's Intact
Psych: Calm
--- NOTE | 2025-02-27 13:13 | CM ---
Reviewed the chart notes and spoke with the patient and his parents at the bedside. Patient resides with his parents, brother, and sister in a three story home with no steps to enter. The patient reports no DME/VN/SNF in the past. The patient
confirmed his pharmacy of choice is [facility]. The patient anticipates going to IR for abscess drainage. CM continues to be available to patient/family and is monitoring medical plan for needs at discharge.
Plan: Discharge plans will depend on the patient's progress.
[2025-02-27] MEDS: D5LR IV (13:20)
[2025-02-27] MEDS: DILAUDID 0.5 MG IV (16:16)
[2025-02-27 16:39] LABS: Amylase 49 U/L (30-110)
[2025-02-27] MEDS: LOVENOX 40 MG SC (17:33)
[2025-02-27] MEDS: DILAUDID 0.25 MG IV ×2 (17:34→22:34)
--- NOTE | 2025-02-27 18:27 | W.PN.UPDATE ---
Update Note
Progress Note Update
Drainage from Abdominal fluid collection sent to lab, was cancelled by laboratory with reason 'not a body fluid and cannot be run in house'.
Patient also complained of crampy pain, rated 9/10, according to nurse on duty. Dilaudid 0.25mg IV q4PRN noted to be given 30 mins prior. I went to check on the patient, he was talking with his family, no grimacing noted. He reports that pain was
now a 7/10, but can go up to 8/10 when cramping pain starts, lasting for a few seconds. Upon palpation, abdomen was soft, tender at the right upper abdomen. No guarding or rigidity noted.
Acetaminophen 1000mg PO q8 added for pain relief
If pain continues, recommend consider switching to NPO and increasing Dilaudid dose to 0.5mg [id number].
Please continue to monitor abdominal exams for any changes.
[2025-02-27] MEDS: TYLENOL PO ×3 (19:16→22:35)
[2025-02-27] MEDS: TYLENOL 1000 MG PO (23:12)
[2025-02-28] MEDS: DILAUDID 0.5 MG IV ×2 (00:38→22:55)
[2025-02-28 03:17] VITALS: BP 136/80
[2025-02-28 07:33] VITALS: BP 124/76
[2025-02-28 08:24] LABS: Hematocrit 38.0 % (39.0-52.0); Hemoglobin 12.9 g/dL (13.0-18.0); Mean Corp Hgb Conc. 33.9 g/dL (33.0-37.0); Mean Corpuscular Volume 86.4 fL (80.0-94.0); Nucleated Red Blood Cells % 0 % (-); Platelet Count 220 10^3/uL (130-400); Red Cell Dist. Width 12.2 % (11.5-14.5)
[2025-02-28 08:47] LABS: Blood Urea Nitrogen 11 mg/dl (9-20); Calcium 9.4 mg/dl (8.4-10.2); Carbon Dioxide 29 mmol/L (22-30); Chloride 105 mmol/L (98-107); Estimated Creatinine Clearance > 125 ml/min; Glucose 93 mg/dl (70-99); Potassium 3.9 mmol/L (3.5-5.1); Sodium 139 mmol/L (135-145); eGFR > 60.00
[2025-02-28] MEDS: D5LR 1000 IV (08:57)
[2025-02-28] MEDS: TYLENOL 1000 MG PO ×2 (08:58→21:44)
[2025-02-28] MEDS: FLAGYL 500 MG 100 IV ×3 (08:58→22:59)
[2025-02-28] MEDS: PROTONIX 40 MG PO (08:58)
[2025-02-28 09:03] LABS: C-Reactive Protein 126.50 mg/L (0.0-10.00)
[2025-02-28] MEDS: DILAUDID 0.25 MG IV (09:13)
--- NOTE | 2025-02-28 10:10 | W.PN.HOSP.TC ---
Today's Communication/Plan
-
Pain management
Continue metronidazole and ceftriaxone
Assessment / Plan
Assessment / Plan
Impression:
24-year-old male with past medical history of asthma, and family history of duodenal duplication cyst (brother) presented with abdominal pain described as constant, diffuse, pain scale of 8/10, slightly relieved when lying down. Denies nausea, and
vomiting.
Imaging:
Abdomen/pelvic CT on 02/26 with IV contrast:
1 4.5 x 3.8 x 8.6 cm multiloculated fluid collection within the right mid abdomen suspicious for abscess. Source of abscess is indeterminate, however superiorly the collection abuts and is inseparable from the duodenum and could represent sequela
of duodenal ulcer or perforation.
2. Mildly enlarged spleen.
Upper GI and Small Bowel X-Ray 02/27 : No findings to suggest duodenal leak or extravasation of contrast
Plan:
# Multiloculated fluid collection of the abdomen
--Abscess vs. Duodenal perforation vs. duplication cyst
--NPO -> liquid diet, continue fluids for now with poor PO intake due to pain
--PPI
--Metronidazole and ceftriaxone per infectious disease
--Pain management -avoid NSAIDs, IV opioids and Tylenol
--IR drained collection on 02/27 40 cc of light bahena-colored nonbilious fluid
--Cultures of fluid collection were sent -also attempted amylase and triglyceride
--Appreciate surgery, GI, ID
DVT prophylaxis: Lovenox 40 mg
Code: Full
Anticipated Discharge: 24 - 48 hours
Subjective/Interval History
-
Date of Service: February 28, 2025
Had some pain overnight that were improved with Dilaudid. This morning pain is okay. Denies any nausea, vomiting overnight. Continues to have regular bowel movements.
Objective Data
-
Labs:
Laboratory Results
02/28/25
08:00
WBC 4.9
Hgb 12.9 L
Hct 38.0 L
Plt Count 220
Sodium 139
Potassium 3.9
Chloride 105
Carbon Dioxide 29
BUN 11
Creatinine 0.9
Glucose 93
Calcium 9.4
Vital Signs:
Vital Signs
Temp Pulse Resp BP Pulse Ox
98.4 F 60 16 124/76 99
02/28/25 07:33 02/28/25 07:33 02/28/25 07:33 02/28/25 07:33 02/28/25 07:33
I&O
02/27/25 02/28/25 03/01/25
06:59 06:59 06:59
Intake Total 792.7 / 792.7 1175 / 1175
Output Total 40 / 40
Balance 792.7 / 792.7 1135 / 1135
Review of Systems
-
History Source: Patient
Respiratory: Reports No Symptoms
Cardiac: Reports No Symptoms
Abdomen/GI: Reports Abdominal Pain
Genitourinary: Reports No Symptoms
Musculoskeletal: Reports No Symptoms
Neuro: Reports No Symptoms
Physical Exam
-
General: No Apparent Distress and Comfortable
HEENT: Normocephalic
Respiratory: Clear to Auscultation
Cardiac: Regular Rhythm and S1/S2
GI: Soft, Nondistended, Normal Bowel Sounds, Tender (Mid and right upper quadrant) and Other (No guarding or rigidity, right sided drain noted with clear light pink fluid)
Musculoskeletal: No Cyanosis and No Edema
Skin: Warm and Dry
Neuro: AO x 3
Psych: Calm
--- NOTE | 2025-02-28 10:48 | W.PN.ID1 ---
Date of Service
Date of Service: February 28, 2025
Today's Communication
- agree with ceftriaxone/metronidazole - likely for eventual deescalation to orals
Assessment / Plan
A&P:
Retroperitoneal fluid collection
Allergies: reports rash with amoxicillin
- will follow up upper GI and endoscopy if pursued
- agree with drainage for cultures and source control; also for possible scoping to assess for possible closure
- agree with ceftriaxone/metronidazole - likely for eventual deescalation to orals
AW
Chief Complaint
-: Other (intraabdominal fluid collection)
Subjective / Review of Systems
afebrile
bp stable
s/p IR guided drainage of collection
Vital Signs / Physical Exam
Vital Signs
Vital Signs
Temp Pulse Resp BP Pulse Ox
98.4 F 60 16 124/76 99
02/28/25 07:33 02/28/25 07:33 02/28/25 07:33 02/28/25 07:33 02/28/25 07:33
Physical Exam
Constitutional: No Acute Distress
Cardiovascular: Regular Rate and S1/S2; Negative Murmur or Rub
Pulmonary: Clear and Symmetric; Negative Wheezes or Rales
Gastrointestinal: Soft, Non Tender, Non Distended and Normal Bowel Sounds
Skin: Warm and Dry; Negative Rash or Jaundice
Objective Data
Lab Data
Lab Results
02/28/25 08:00
02/28/25 08:00
PT 15.2 Sec (11.4-14.6) H 02/27/25 06:04
INR 1.15 02/27/25 06:04
APTT 37.6 Sec (23.4-35.0) H 02/27/25 06:04
Estimated Creat Clear > 125 ml/min 02/28/25 08:00
Total Bilirubin 1.1 mg/dl (0.2-1.3) 02/26/25 11:59
AST 21 U/L (17-59) 02/26/25 11:59
ALT 26 U/L (0-50) 02/26/25 11:59
Alkaline Phosphatase 58 U/L (38-126) 02/26/25 11:59
C-Reactive Protein 126.50 mg/L (0.0-10.00) H 02/28/25 08:00
Amylase 49 U/L (30-110) 02/27/25 06:04
Most recent labs reviewed.
Laboratory Tests
02/27/25 02/28/25
06:04 08:00
C-Reactive Protein 141.80 H 126.50 H
Micro Results:
02/26/25 20:03 Blood Culture - Preliminary
Blood/Venous No Growth in 24 hours- Final report to follow
02/26/25 20:03 Blood Culture - Preliminary
Blood/Venous No Growth in 24 hours- Final report to follow
02/27/25 16:20 Wound Culture - Pending
Abscess Gram Stain - Preliminary
02/26/25 12:25 Urine Culture - Final
Urine NO GROWTH
CT Abd/pelvis W Iv Cont 02/26/25
1. 4.5 x 3.8 x 8.6 cm multiloculated fluid collection within the right mid abdomen suspicious for abscess. Source of abscess is indeterminate, however superiorly the collection abuts and is inseparable from the duodenum and could represent sequela
of duodenal ulcer or perforation.
2. Mildly enlarged spleen.
[2025-02-28 11:27] VITALS: BP 126/77
--- NOTE | 2025-02-28 11:47 | W.PN.UPDATE ---
Update Note
Progress Note Update
I saw and evaluated the patient. I reviewed the resident�s note and agree with findings and plan as documented in the resident�s note.
Currently denies abdominal pain.
Gen: NAD, AAOx3.
Eyes: EOMI, PERRLA, no scleral icterus.
Neck: supple.
CV: RRR, +S1/S2, no m/r/g.
Resp: CTAB, no rales, wheezes, or rhonchi.
Abd: +BS, soft, epigastric and right upper quadrant tenderness to palpation, ND
Skin: No rashes.
Neuro: CN 2-12 intact, non-focal.
Psych: Normal mood and affect.
02/27/25 16:20 Abscess Wound Culture - Preliminary
No growth
02/27/25 16:20 Abscess Gram Stain - Preliminary
02/26/25 20:03 Blood/Venous Blood Culture - Preliminary
No Growth in 24 hours- Final report to follow
02/26/25 20:03 Blood/Venous Blood Culture - Preliminary
No Growth in 24 hours- Final report to follow
02/26/25 12:25 Urine Urine Culture - Final
NO GROWTH
CT A/P:
1. 4.5 x 3.8 x 8.6 cm multiloculated fluid collection within the right mid abdomen suspicious for abscess. Source of abscess is indeterminate, however superiorly the collection abuts and is inseparable from the duodenum and could represent sequela
of duodenal ulcer or perforation.
2. Mildly enlarged spleen.
UGI-series with SB follow through: Slightly prominent proximal duodenal mucosal folds. No findings to suggest duodenal leak or extravasation of contrast. Rapid small bowel transit.
R midabdomen abscess:
-s/p IR drainage of pelvic abscess, 40cc light bahena colored nonbilious fluid
-GI/surgery/ID following
-cont Rocephin/Flagyl
-follow Cxs
FULL/Lovenox
Dr. Winter is agreed to take the patient on his service.
[2025-02-28] MEDS: STERILE WATER FOR INJECTION 20 ML IV (11:50)
[2025-02-28] MEDS: ROCEPHIN 2000 MG IV (11:50)
--- NOTE | 2025-02-28 13:00 | W.PN.GS2 ---
Addendum entered and electronically signed by Bipin Winter MD 02/28/25 15:03:
Patient seen and examined in follow-up with surgical [employer]. Agree with documented progress note.
Patient's mother at bedside during discussions.
He has some lingering discomfort in the epigastrium and to the right of midline where his IR drainage catheter exits the skin.
No nausea, no vomiting, moving bowels
Hungry and feels like he is ready to eat
AFVSS
NAD AAO x 3
ABD: Soft, nondistended, mild tenderness palpation epigastrium and right upper quadrant
IR drainage catheter cultures with no growth to date, Gram stain with WBCs, no organisms
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
Significant clinical improvement after IR guided drainage
Okay to transfer to surgical service for continued care as no active chronic medical conditions
Advance to regular diet
Continue current antibiotics, ID following -probable transition to short course of oral antibiotics versus observation following IR guided drainage pending culture results
Outpatient radiographic imaging will be arranged including abscessogram and CT imaging and future upper endoscopy
Probable DC tomorrow pending clinical course overnight with dietary advancement
Original Note:
Today's Communication / Plan
-
advance diet
Assessment / Plan
-
24-year-old male presenting with abdominal pain likely d/t inflamed duodenal duplication cyst.
UGI on 02/27: collection with no communication with GI tract/no extravasation
PPD #1 IR drainage, nonbilious thick yellow fluid initially, now serous
IR cx with NGTD
No leukocytosis, CRP elevated and trending down
AFVSS
Minimal discomfort
Plan:
c/w IR drain, will likely remain in place upon d/c
Await cx, abx as per ID
Advance to regular diet
Transfer to surgical service
OOB ambulate/Ok to shower
Trend CRP
Possible d/c tomorrow if tolerating diet, pending cx results
Subjective Data
-
Date of Service: February 28, 2025
Pt seen and examined at bedside with Dr. Winter. Denies n/v. Tolerating clears. Sore after procedure yesterday. Passing flatus and BMs.
Objective Data
-
Intake and Output
02/27/25 02/28/25 03/01/25
06:59 06:59 06:59
Intake Total 792.7 / 792.7 1175 / 1175
Output Total 40 / 40
Balance 792.7 / 792.7 1135 / 1135
Intake:
Oral fluids 450 / 450
IV fluids (Total) 616 / 616 615 / 615
IV piggybacks 176.7 / 176.7 100 / 100
Amount instilled into Drain (
Total)
Right Abdomen Felix-Win 10 10
Placed in IR
Output:
Drain Output (Total) 40 / 40
Right Abdomen Felix-Win 40 / 40
Placed in IR
Other:
Number of approximated MODERATE 3
amounts of urine
Number of approximated LARGE 1
amounts of urine
Vital Signs
Temp Pulse Resp BP Pulse Ox
99.0 F 58 16 126/77 98
02/28/25 11:27 02/28/25 11:27 02/28/25 11:27 02/28/25 11:27 02/28/25 11:27
Lab Results
02/28/25 08:00
02/28/25 08:00
Calcium 9.4 mg/dl (8.4-10.2) 02/28/25 08:00
Total Bilirubin 1.1 mg/dl (0.2-1.3) 02/26/25 11:59
AST 21 U/L (17-59) 02/26/25 11:59
ALT 26 U/L (0-50) 02/26/25 11:59
Alkaline Phosphatase 58 U/L (38-126) 02/26/25 11:59
Total Protein 7.1 g/dl (6.3-8.2) 02/26/25 11:
Albumin 4.4 g/dl (3.5-5.0) 02/26/25 11:59
Physical Exam
-
NAD
ABD soft, mild upper abdominal tenderness, tenderness around drain
IR drain with serous fluid
[2025-02-28 15:35] VITALS: BP 127/66
[2025-02-28] MEDS: LOVENOX 40 MG SC (17:20)
[2025-02-28 23:12] VITALS: BP 144/78
--- NOTE | 2025-03-01 05:49 | W.PN.UPDATE ---
Update Note
Progress Note Update
~ 21:30 Pt requesting Dilaudid for pain rates at an 8 out of 10 when he moves and gets out of bed, appears very comfortable resting in bed, unwilling to try any PO medications that are ordered. Patient to be discharged tomorrow. Patient saying he
will leave AMA if he does not get Dilaudid pain medication. Talked with him about my concerns for pain management and drain care, patient willing to try Tylenol since he had that previously with no reaction.
Again, went to see patient as he verbalized he was leaving AMA, wanted discharge instructions, how to care for drain, medications that he would be discharged home on. Let patient know that I would not be able to discharge him, would be best to stay
the night and talk with surgery in the morning. TT to surgery, ok to give Dilaudid 0.5 mg IV x 1 dose. Medication ordered.
[2025-03-01 07:34] VITALS: BP 115/77
[2025-03-01 08:08] LABS: Hematocrit 37.3 % (39.0-52.0); Hemoglobin 12.9 g/dL (13.0-18.0); Mean Corp Hgb Conc. 34.6 g/dL (33.0-37.0); Mean Corpuscular Volume 85.4 fL (80.0-94.0); Platelet Count 223 10^3/uL (130-400); Red Cell Dist. Width 12.0 % (11.5-14.5)
[2025-03-01 08:39] LABS: Blood Urea Nitrogen 8 mg/dl (9-20); Calcium 9.1 mg/dl (8.4-10.2); Carbon Dioxide 28 mmol/L (22-30); Chloride 106 mmol/L (98-107); Estimated Creatinine Clearance > 125 ml/min; Glucose 82 mg/dl (70-99); Potassium 4.1 mmol/L (3.5-5.1); Sodium 140 mmol/L (135-145); eGFR > 60.00
[2025-03-01 08:47] LABS: C-Reactive Protein 89.80 mg/L (0.0-10.00)
--- NOTE | 2025-03-01 09:18 | W.PN.GS2 ---
Addendum entered and electronically signed by Bipin Winter MD 03/01/25 09:34:
Patient seen and examined with surgical CAMP NURSE. Agree with documented progress note with additions noted here.
Pain at times with movement and activities but generally adequately controlled.
Tolerated regular diet without exacerbation of pain.
AFVSS
NAD AAO x 3
ABD: Soft, mild tenderness centrally and around IR drain site. No rebound rigidity or guarding.
IR drain to bulb suction, serous fluid -nonbilious, nonpurulent
Drainage cultures no growth to date
Blood cultures no growth to date
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
Clinically improved/resolving status post IR drainage
Okay for discharge today with subsequent outpatient care
Will arrange for tube study/abscessogram with IR this week
Follow-up CT imaging probably immediately after IR tube check/same-day
Counseled regarding care for IR drain
Flush forward with 5 to 10 mL saline daily, maintain bulb suction, empty and record outputs, okay to shower drain in place
Antibiotic plan as per ID recommendations
Discharge today if ID comfortable with either transitioning to oral antibiotics or discontinuing further antibiotic coverage
Original Note:
Today's Communication / Plan
-
dispo planning
Assessment / Plan
-
24-year-old male presenting with abdominal pain likely d/t inflamed duodenal duplication cyst.
UGI on 02/27: collection with no communication with GI tract/no extravasation
PPD 21 IR drainage, nonbilious thick yellow fluid initially, now serous.
IR cx with NGTD
No leukocytosis, CRP trending down
AFVSS
Minimal discomfort at drain site
Plan:
c/w IR drain and daily flush, will remain in place upon d/c
Await cx, abx as per ID
Advance to regular diet
OOB ambulate/Ok to shower
Discharge once antibiotic plan in place, tentatively this afternoon
Subjective Data
-
Date of Service: March 01, 2025
PT seen and examined at bedside with Dr. Winter. Denies n/v. Tolerating diet. No bm yet today. Pain improving.
Objective Data
-
Intake and Output
02/28/25 03/01/25 03/02/25
06:59 06:59 06:59
Intake Total 1175 / 1175 2270 / 2270
Output Total 40 / 40 60 / 60
Balance 1135 / 1135 2210 / 2210
Intake:
Oral fluids 450 / 450 1440 / 1440
IV fluids (Total) 615 / 615 620 / 620
IV piggybacks 100 / 100 200 / 200
Amount instilled into Drain (
Total)
Right Abdomen Felix-Win
Placed in IR
Output:
Drain Output (Total) 40 / 40 60 / 60
Right Abdomen Felix-Win 40 / 40 60 / 60
Placed in IR
Other:
Number of approximated MODERATE 3 1
amounts of urine
Vital Signs
Temp Pulse Resp BP Pulse Ox
97.9 F 64 16 115/77 97
03/01/25 07:34 03/01/25 07:34 03/01/25 07:34 03/01/25 07:34 03/01/25 07:34
Lab Results
03/01/25 07:28
03/01/25 07:28
Calcium 9.1 mg/dl (8.4-10.2) 03/01/25 07:28
Total Bilirubin 1.1 mg/dl (0.2-1.3) 02/26/25 11:59
AST 21 U/L (17-59) 02/26/25 11:59
ALT 26 U/L (0-50) 02/26/25 11:59
Alkaline Phosphatase 58 U/L (38-126) 02/26/25 11:59
Total Protein 7.1 g/dl (6.3-8.2) 02/26/25 11:59
Albumin 4.4 g/dl (3.5-5.0) 02/26/25 11:59
Physical Exam
-
NAD
ABD soft, ND, tenderness around drain
IR drain with serous fluid
[2025-03-01] MEDS: PROTONIX 40 MG PO (09:36)
[2025-03-01] MEDS: FLAGYL 500 MG 100 IV (09:36)
--- NOTE | 2025-03-01 11:10 | W.PN.UPDATE ---
Update Note
Progress Note Update
Following patient peripherally.
No growth in the fluid collection/drainage of IR specimen.
Currently on antibiotics per ID
Also followed up with general surgery, they will keep us in the loop in case upper endoscopy is needed.
--- NOTE | 2025-03-01 12:00 | W.PN.ID1 ---
Date of Service
Date of Service: March 01, 2025
Today's Communication
- switch to Cefdinir/metronidazole to complete a 5 day total course 02/26-03/02
Assessment / Plan
A&P:
Retroperitoneal fluid collection
Allergies: reports rash with amoxicillin
- switch to Cefdinir/metronidazole to complete a 5 day total course 02/26-03/02
AW
Chief Complaint
-: Other (intraabdominal fluid collection)
Subjective / Review of Systems
afebrile
bp stable
no events overnight
Vital Signs / Physical Exam
Vital Signs
Vital Signs
Temp Pulse Resp BP Pulse Ox
97.9 F 64 16 115/77 97
03/01/25 07:34 03/01/25 07:34 03/01/25 07:34 03/01/25 07:34 03/01/25 07:34
Physical Exam
Constitutional: No Acute Distress
Cardiovascular: Regular Rate and S1/S2; Negative Murmur or Rub
Pulmonary: Clear and Symmetric; Negative Wheezes or Rales
Gastrointestinal: Soft, Non Tender, Non Distended and Normal Bowel Sounds
Skin: Warm and Dry; Negative Rash or Jaundice
Objective Data
Lab Data
Lab Results
03/01/25 07:28
03/01/25 07:28
PT 15.2 Sec (11.4-14.6) H 02/27/25 06:04
INR 1.15 02/27/25 06:04
APTT 37.6 Sec (23.4-35.0) H 02/27/25 06:04
Estimated Creat Clear > 125 ml/min 03/01/25 07:28
Total Bilirubin 1.1 mg/dl (0.2-1.3) 02/26/25 11:59
AST 21 U/L (17-59) 02/26/25 11:59
ALT 26 U/L (0-50) 02/26/25 11:59
Alkaline Phosphatase 58 U/L (38-126) 02/26/25 11:59
C-Reactive Protein 89.80 mg/L (0.0-10.00) H 03/01/25 07:28
Amylase 49 U/L (30-110) 02/27/25 06:04
Most recent labs reviewed.
Micro Results:
02/27/25 16:20 Wound Culture - Preliminary
Abscess No growth
Gram Stain - Preliminary
02/26/25 20:03 Blood Culture - Preliminary
Blood/Venous No Growth in 48 hours- Final report to follow
02/26/25 20:03 Blood Culture - Preliminary
Blood/Venous No Growth in 48 hours- Final report to follow
02/26/25 12:25 Urine Culture - Final
Urine NO GROWTH
CT Abd/pelvis W Iv Cont 02/26/25
1. 4.5 x 3.8 x 8.6 cm multiloculated fluid collection within the right mid abdomen suspicious for abscess. Source of abscess is indeterminate, however superiorly the collection abuts and is inseparable from the duodenum and could represent sequela
of duodenal ulcer or perforation.
2. Mildly enlarged spleen.
Care Review
Plan reviewed with: Physician (Dr Winter - olivia)
--- NOTE | 2025-03-01 12:33 | W.DS.TRANS ---
Addendum entered and electronically signed by ALYSSA Wright 03/01/25 13:14:
dictated #[id number]
Original Note:
DC Summary - Car Body Mechanic
-
Discharge Instructions:
Discharge Diagnosis/Procedures Intraabdominal fluid collection. Suspected
duodenal duplication cyst with inflammation/
infection
Diet As tolerated,Regular
Activity As tolerated
Additional Activity Avoid dislodging the drain
Driving Restrictions As prior to admission
Bathing Restrictions OK to Shower
Wound Care Call your surgeon's office if there are any
issues with the drain. A drain study in
radiology will be done prior to removal. Flush
drain daily (see handout). Change dressing over
the drain every other day and as needed if
soiled. OK to remove for showers.
Instructions: How to care for a closed suction drain
Stand-Alone Forms:
Changes to Home Medications: No
Discharge Medications:
DC Medications w/original date entered in [employer]
acetaminophen 325 mg tablet 650 mg (2 x 325 mg) PO Q4HPRN PRN mild pain #1 tab 03/01/25
cefdinir 300 mg capsule 300 mg PO BID #3 caps 03/01/25
ibuprofen 200 mg tablet 400 - 600 mg (2 - 3 x 200 mg) PO Q6HPRN PRN moderate pain #1 tab 03/01/25
metronidazole 500 mg tablet 500 mg PO BID #3 tabs 03/01/25
sodium chloride 0.9 % (flush) (Normal Saline Flush 0.9 % injection syringe) 10 ml intra-catheter DAILY #140 mL 03/01/25
Home Medication Changes
Pending Results: No
[2025-03-01] MEDS: STERILE WATER FOR INJECTION IV (12:38)
[2025-03-01] MEDS: ROCEPHIN IV (12:38)
[2025-03-01] MEDS: OMNICEF 300 MG PO (12:51)
[2025-03-01 13:01] VITALS: BP 138/79
--- NOTE | 2025-03-01 14:04 | PTCARENOTE ---
mor pt how to drain and flush his CUONG drain. He was able to perform procedure and understood all parts of care for it.
--- NOTE | 2025-03-03 12:44 | W.PN.UPDATE ---
Update Note
Progress Note Update
24 yo male presents for eval of leaking flush from hub. On eval there is a small amount of leakage from the hub with flush. THe drain is still functioning draining serous fluid. No fever or chills. o abdominal pain. D/W Dr. Galloway who also
evaluated the pt. Offered change with sedation in 24-48 hours. Pt would like to avoid this if possible. Will call our office if he begins to leak more or develops abdominal pain or fever.
== END 2025-03-01 13:11 | disposition home or self-care (01) | DRG 393 ==
LOC: 2 NORTH 18:47
PROVIDERS: Emergency Medicine; Physician Assistant; Radiology Vascular & Interventional Radiology; Registered Nurse; ADMITTING PHYSICIAN Hospitalist; ATTENDING PHYSICIAN Surgery; CONSULT PHYSICIAN Internal Medicine Gastroenterology; CONSULT PHYSICIAN Student in an Organized Health Care Education/Training Program; CONSULT PHYSICIAN Surgery; EMERGENCY PHYSICIAN Emergency Medicine
PROC: 0W9G30Z Drainage of Peritoneal Cavity with Drainage Device, Percutaneous Approach (ICD-10-PCS; 2025-02-27)
DX: Q43.8 Other specified congenital malformations of intestine (principal); K65.1 Peritoneal abscess; R16.1 Splenomegaly, not elsewhere classified; Z88.0 Allergy status to penicillin
CPT/HCPCS: 49406; 74177; 74240; 74248; 80048; 80053; 81003; 81015; 82150; 83690; 85025; 85027; 85610; 85730; 86140; 87040; 87070; 87086; 87205; 88112; 88305; 93005; 96361; 96365; 96367; 96375; 99152; 99284; Q9967

== ENCOUNTER → 2025-03-06 12:36 | Outpatient (REF) | payer OTHER, SELFPAY ==
[2025-03-06 13:07] VITALS: BP 129/71; BP_SYST 68
== END ==
LOC: RADI 12:36
PROVIDERS: ATTENDING PHYSICIAN Surgery
DX: Z46.82 Encounter for fitting and adjustment of non-vascular catheter (principal); K65.1 Peritoneal abscess
CPT/HCPCS: 49424; 74177; 76080; Q9967

== ENCOUNTER 2025-05-11 06:24 | Day surgery (SDC) | payer OTHER, SELFPAY ==
[2025-05-05 08:55] LABS: Hematocrit 42.3 % (39.0-52.0); Hemoglobin 14.5 g/dL (13.0-18.0); Mean Corp Hgb Conc. 34.3 g/dL (33.0-37.0); Mean Corpuscular Volume 83.9 fL (80.0-94.0); Platelet Count 250 10^3/uL (130-400); Red Cell Dist. Width 13.0 % (11.5-14.5)
[2025-05-05 09:34] LABS: Blood Urea Nitrogen 15 mg/dl (9-20); Calcium 9.5 mg/dl (8.4-10.2); Carbon Dioxide 26 mmol/L (22-30); Chloride 105 mmol/L (98-107); Glucose 89 mg/dl (70-99); Potassium 4.4 mmol/L (3.5-5.1); Sodium 140 mmol/L (135-145); eGFR > 60.00
[2025-05-05 14:00] VITALS: BMI 26.0
[2025-05-11] VITALS (9 sets, daily range): BP systolic 116–140; BP diastolic 64–82; BMI 26.0
--- NOTE | 2025-05-11 11:57 | HP.FOC2 ---
Focused History & Physical
Chief Complaint
HPI:
Chief Complaint: Duodenal duplication cyst
HPI / Indication for Planned Procedure: Patient is a 24-year-old male previously known to myself after hospitalization this past February due to the acute onset of abdominal pain. Subsequent emergency department evaluation with CT imaging
identified a multiloculated fluid collection in the right retroperitoneum adjacent to the 2nd and 3rd portions of the duodenum measuring 3.5 x 3.8 x 8.6 cm. In the setting of the inflammatory stranding there is suspicion for possible infectious
component and patient underwent IR guided drainage. Upper GI contrast imaging subsequently confirmed that there was no communication with the duodenum. IR drain study similarly showed an isolated cystic mass. 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
duplication cyst. Patient presents today for definitive excision.
Relevant Past Medical History: Other (Asthma)
Relevant Social History: Negative
Relevant Family History: Negative
Relevant Past Surgical History: Positive for (Left femur fracture repair)
Review of Systems
Review of Pertinent Systems: All Systems Negative
Medication
See Medication form for detailed medications: Yes
Medication List (including Herbals & OTC):
albuterol sulfate 90 mcg/actuation aerosol inhaler 1 puff inhalation PRN PRN asthma 05/05/25
Medications Reviewed: Yes
Allergies and Reactions
Patient has Allergies: Yes
Noted Allergies and Reactions:
Allergy/AdvReac Type Severity Reaction Status Date / Time
amoxicillin Allergy Rash Verified 05/11/25 11:56
Pertinent Physical Exam
All Other Systems: Negative
Head/Neck: Normal
Lungs: Normal
Heart: Normal
Abdomen: Other (IR drain )
Extremities: Normal
Neurological: Normal
Diagnosis / Assessment
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
Plan / Procedure
Robotic assisted laparoscopic excision of suspected duodenal duplication cyst
Anesthesia/Sedation to be done by Anesthesia Provider: Yes
--- NOTE | 2025-05-11 12:02 | W.SUR.PREOP ---
Pre-Operative Surgical Note
-
I have examined this patient prior to the performance of the scheduled procedure.
The patient's condition is unchanged from the time of the current History and
Physical and the patient is able to undergo the scheduled procedure.
--- NOTE | 2025-05-11 16:19 | W.IMMPOSTOP ---
Addendum entered and electronically signed by Bipin Winter MD 05/13/25 14:47:
#[id number]
Original Note:
Surgical Immed Post Op Note
-
Primary Surgeon: Bipin Winter MD
Assisting Surgeon: Chacha Chong NP
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
Procedure Performed: Excision duodenal/mesenteric duplication cyst
Anesthesia Type: GETA +0.25% Marcaine with epinephrine
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
Estimated Blood Loss: 20 mL
Complications: None immediate
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 No direct communication with serosal surface of 2nd/3rd portion of duodenum. Intimately adherent/associated with mesentery of transverse colon at the
hepatic flexure. 95% of cyst excised except for deep/posterior wall about 1.5 x 1.5 cm which was adherent right branch of middle colic artery and right branch off of ileocolic artery. Left this portion of cystic mass and cauterized. Surgiflo
applied. No mesenteric defect. Omentum brought down over surgical field. Old drain site skin surgical tract excised and closed.
The assistance of Chacha Chong NP was required due to the complexity of the procedure. During the procedure Chacha Chong NP assisted with port placement, robotic instrumentation and suture material exchanges, laparoscopic suction and
closure of the surgical incision sites. I was present for the entirety of the operative procedure including closure.
Patient's family updated postoperatively in the waiting area
[2025-05-11] MEDS: NSS 1000 IV (18:06)
[2025-05-11] MEDS: DILAUDID 0.5 MG IV ×2 (18:19→23:33)
[2025-05-11] MEDS: ZOFRAN 4 MG IV (21:18)
[2025-05-12 03:00] VITALS: BP 121/54
[2025-05-12] MEDS: NSS 1000 IV (03:54)
--- NOTE | 2025-05-12 07:17 | W.PN.GS2 ---
Today's Communication / Plan
-
`
Assessment / Plan
-
Assessment: POD #1 status post robotic assisted laparoscopic removal of suspected mesenteric/duodenal duplication cyst
AFVSS
Doing well postop
Plan: Regular diet for breakfast -cautioned, smaller portion size and softer/easier to digest.
DC home -no narcotic prescription provided
Discharge instructions reviewed
Subjective Data
-
Date of Service: May 12, 2025
Patient seen and examined. Reports nausea resolved after single dose of antiemetic overnight.
Pain control adequate postop.
He has ambulated and voided
Tolerated liquids and hungry for solid food this a.m. Passing flatus
Objective Data
-
Intake and Output
05/11/25 05/12/25 05/13/25
06:59 06:59 06:59
Intake Total 1969
Balance 1969
Intake:
Oral fluids 720 / 720
IV fluids (Total) 1250 / 1250
normosol 50 / 50
Other:
Number of approximated MODERATE 2
amounts of urine
Vital Signs
Temp Pulse Resp BP Pulse Ox
98.4 F 74 17 121/54 99
05/12/25 03:00 05/12/25 03:00 05/12/25 03:00 05/12/25 03:00 05/12/25 03:00
Calcium 9.5 mg/dl (8.4-10.2) 05/05/25 08:06
Physical Exam
-
NAD AAO x 3
ABD: Soft, nondistended, tenderness only at incision sites, mild
Robotic surgical sites with glue dressings
Old IR drain site with Steri-Strips over incision closure
[2025-05-12 07:20] VITALS: BP 127/74
[2025-05-12 07:21] LABS: Hematocrit 37.3 % (39.0-52.0); Hemoglobin 12.7 g/dL (13.0-18.0); Mean Corp Hgb Conc. 34.0 g/dL (33.0-37.0); Mean Corpuscular Volume 85.7 fL (80.0-94.0); Platelet Count 250 10^3/uL (130-400); Red Cell Dist. Width 13.1 % (11.5-14.5)
--- NOTE | 2025-05-12 07:21 | W.DS.TRANS ---
DC Summary - Business Specialist
-
Discharge Instructions:
Sleep Apnea Risk Low
Discharge Diagnosis/Procedures Robotic assisted laparoscopic removal suspected
duodenal/mesenteric duplication cyst
Diet As tolerated,Regular
Additional Diets Smaller meals initially after surgery for the
first few days as abdominal bloating and
distention are common
Activity No strenuous activity
Additional Activity No lifting over 20 pounds or strenuous exercise
for 4 weeks postop
Driving Restrictions No driving for 1 to 2 days or if using narcotics
Bathing Restrictions OK to Shower
Wound Care Glue at robotic surgical sites typically peels
off in 2 to 3 weeks. Steri-Strip at old drain
site will likely peel off in 1 to 2 weeks. Okay
to leave old drain site open to air or cover
with dry gauze pad if drainage.
Instructions:
Stand-Alone Forms:
Changes to Home Medications: No
Discharge Medications:
DC Medications w/original date entered in [employer]
albuterol sulfate 90 mcg/actuation aerosol inhaler 1 puff inhalation PRN PRN asthma 05/05/25
acetaminophen 500 mg tablet (Tylenol Extra Strength) 1,000 mg (2 x 500 mg) PO Q6HPRN PRN mild pain #1 tab 05/12/25
ibuprofen 200 mg tablet 400 - 600 mg (2 - 3 x 200 mg) PO Q6HPRN PRN moderate pain #1 tab 05/12/25
polyethylene glycol 3350 17 gram/dose oral powder (Miralax) 4 g PO DAILY PRN Constipation #119 grams 05/12/25
Home Medication Changes
Pending Results: No
[2025-05-12 08:19] LABS: Blood Urea Nitrogen 11 mg/dl (9-20); Calcium 8.6 mg/dl (8.4-10.2); Carbon Dioxide 26 mmol/L (22-30); Chloride 105 mmol/L (98-107); Estimated Creatinine Clearance > 125 ml/min; Glucose 90 mg/dl (70-99); Potassium 4.0 mmol/L (3.5-5.1); Sodium 136 mmol/L (135-145); eGFR > 60.00
--- NOTE | 2025-05-12 08:19 | CM ---
CM reviewed medical records. CM confirmed demographics. Patient lives independently with parents. Patient does not have a history of VN, SNF or DME. Patient does not have a family doctor. Patient has medication coverage.
PLAN: Home with no needs.
== END 2025-05-12 10:25 | disposition home or self-care (01) ==
LOC: SDS 06:24
PROVIDERS: ATTENDING PHYSICIAN Surgery
DX: Q43.4 Duplication of intestine (principal)
CPT/HCPCS: 44238; 80048; 85027; 86850; 86900; 86901; 88304